=== PATIENT | male | born 1985 | race Caucasian/White ===

== ENCOUNTER 2018-04-18 14:32 | Emergency (ER) | payer OTHER ==
--- NOTE | 2018-04-18 15:03 | ED PDOC ---
HPI: Back Time Seen by Provider: 04/18/18 14:41 Chief Complaint (Nursing): Back Pain Chief Complaint (Provider): Back Pain History Per: Patient History/Exam Limitations: no limitations Onset/Duration Of Symptoms: Days (x1 week) Current Symptoms Are (Timing): Still Present Additional Complaint(s): 32 year old male presents to the ED for evaluation of non-radiating left lower back pain described as pressure for the past week. 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 His last dose of Ibuprofen for pain was reported to be 0700 this morning. Otherwise, denies hx of back problems/ surgeries, fever, chills, urinary symptoms, saddle anesthesia, paresthesia, numbness, weakness, nausea, vomiting, diarrhea, abdominal pain, chest pain, and shortness of breath. PMD: [facility] Past Medical History Reviewed: Historical Data, Nursing Documentation, Vital Signs Vital Signs: Last Vital Signs Temp 98.3 F 04/18/18 14:38 Pulse 83 04/18/18 14:38 Resp 20 04/18/18 14:38 BP 165/87 H 04/18/18 14:38 Pulse Ox 99 04/18/18 14:38 - Medical History PMH: No Chronic Diseases - Surgical History Other surgeries: left knee surgery - Family History Family History: States: Unknown Family Hx - Social History Current smoker - smoking cessation education provided: No Alcohol: None Drugs: Denies - Home Medications Home Medications: Ambulatory Orders Medication Instructions Recorded Cyclobenzaprine [Cyclobenzaprine 10 mg PO Q8 PRN #12 tab 04/18/18 HCl] RX: Cane 1 each MC DAILY #1 each 04/18/18 RX: Ibuprofen [Motrin Tab] 800 mg PO Q8 PRN #21 tab 04/18/18 - Allergies Allergies/Adverse Reactions: Allergies Allergy/AdvReac Type Severity Reaction Status Date / Time No Known Allergies Allergy Verified 04/18/18 14:37 Review of Systems ROS Statement: Except As Marked, All Systems Reviewed And Found Negative Constitutional: Negative for: Fever, Chills Cardiovascular: Negative for: Chest Pain Respiratory: Negative for: Shortness of Breath Gastrointestinal: Negative for: Nausea, Vomiting, Abdominal Pain, Diarrhea Genitourinary Male: Negative for: Dysuria, Frequency Musculoskeletal: Positive for: Back Pain (lower left) Neurological: Negative for: Weakness, Numbness, Other (paresthesias, saddle anesthesia) Physical Exam - Reviewed Nursing Documentation Reviewed: Yes Vital Signs Reviewed: Yes - Physical Exam Comments: GENERAL APPEARANCE: Patient is awake, alert, oriented x 3, in no acute distress. Ambulatory in ED with steady gait. SKIN: Warm, dry; (-) cyanosis. EYES: (-) conjunctival pallor. ENMT: Mucous membranes moist. NECK: Supple, FROM CHEST AND RESPIRATORY: (-) rales, (-) rhonchi, (-) wheezes; breath sounds equal bilaterally. Respirations even and nonlabored. HEART AND CARDIOVASCULAR: (-) irregularity ABDOMEN AND GI: Soft; (-) tenderness (-) guarding (-) distention. BACK: (+) left paralumbar tenderness, (-) spasm, (-) direct bony tenderness, (- ) deformity. EXTREMITIES: (-) deformity. Distal pulses good bilaterally. NEURO AND PSYCH: Mental status as above. Intact sensation bilaterally; normal strength in extension of the knees, plantar and dorsiflexion of the toes. Gait: limping. Speech: clear. No gross sensory deficit. (-) facial asymmery (-) aphasia - ECG O2 Sat by Pulse Oximetry: 99 (RA) Pulse Ox Interpretation: Normal Medical Decision Making Medical Decision Making: Initial Impression: acute back pain, lumbar strain Time: 1455 Initial Plan: --Flexeril 10mg PO (not driving home) --Toradol 60mg IM --Re-evaluation 1600 On re-evaluation, patient reports continued pain. Tramadol 50mg PO ordered. 1700 On re-evaluation, patient reports difficulty ambulating. Patient states pain is radiating down the left leg and his leg feels as if it will buckle out. Case discussed with ED MD Hirsch, who recommends CT without contrast. CT ordered. Patient searched in [employer] and no account found with patient's information. 1826 CT FINDINGS: ALIGNMENT: Bony alignment is anatomic. DISCS/DEGENERATIVE CHANGES: T12/L1: No significant central canal or neural foraminal stenosis. L1/L2: No significant central canal or neural foraminal stenosis. L2/L3: No significant central canal or neural foraminal stenosis. L3/4: No significant central canal or neural foraminal stenosis. L4/5: No significant central canal or neural foraminal stenosis. L5/S1: There is a small central posterior disc herniation with a calcific density encroaching on the anterior aspect of the spinal canal at this level. Neural foramen are patent. BONES: No acute fracture or aggressive appearing osseous lesion. SOFT TISSUES: The soft tissues are unremarkable. MISCELLANEOUS: No abnormal contrast enhancement. IMPRESSION: Small central posterior disc herniation with calcific density at the L5-S1 level. Clinical correlation advised. If warranted correlation with MRI examination of the lumbosacral spine should be considered Repeat BP: 128/74 Results discussed with patient using operations business partner #[phone]. On re-evaluation, patient reports improvement of symptoms. Gait steady in the ED. On exam, patient remains AAOx3, in no acute distress. Vitals stable. Lab /Diagnostic results d/w the patient in great detail. Diagnosis of acute back pain, lumbar disc herniation d/w the patient. Based on history, exam and diagnostic results, plan will be for outpatient follow up. Patient instructed to follow-up with pmd / referral provided / the clinic in 1- 2 days without fail. Advised to take medication as prescribed. Return to the emergency room at any time for any new or worsening symptoms. Patient states he fully agrees with and understands discharge instructions. States that he agrees with the plan and disposition. Verbalized and repeated discharge instructions and plan. I have given the patient opportunity to ask any additional questions. Scribe Attestation: Documented by Danay Kc, acting as a scribe for Susanne Dwyer PA-C. Provider Scribe Attestation: All medical record entries made by the Scribe were at my direction and personally dictated by me. I have reviewed the chart and agree that the record accurately reflects my personal performance of the history, physical exam, medic al decision making, and the department course for this patient. I have also personally directed, reviewed, and agree with the discharge instructions and disposition. Disposition - Clinical Impression Clinical Impression: Acute back pain, Lumbar disc herniation, Radicular pain of lower extremity - Patient ED Disposition Is Patient to be Admitted: No Counseled Patient/Family Regarding: Studies Performed, Diagnosis, Need For Followup, Rx Given - Disposition Referrals: Zain Curtis MD [Medical Doctor] - [facility] [Outside] Disposition: Routine/Home Disposition Time: 19:20 Condition: STABLE Additional Instructions: La atencin mdica de emergencia que recibi hoy se dirigi a quita sntomas agudos. Si le recetaron algn medicamento, llnelo y tmelo segn las indicaciones. Los sntomas pueden tardar varios khan en resolverse. Regrese al Departamento de Emergencias si quita sntomas empeoran, no mejoran o si tiene otros problemas. Comunquese con minor mdico dentro de 2 khan para guzman nueva evaluacin y wilfredo un seguimiento o llame a jero de los mdicos / clnicas a los que alvarez sido referido y que figuran en el formulario de Informacin de visita al paciente que se incluye en minor paquete de demond. Lleve todos los documentos que le entregaron al momento del demond junto con todos los medicamentos que est tomando para minor visita de seguimiento. Nuestro tratamiento no puede reemplazar la atencin mdica continua por parte de un proveedor de atencin primaria (PCP) fuera del departamento de emergencias. Prescriptions: RX: Cane 1 each MC DAILY #1 each Cyclobenzaprine [Cyclobenzaprine HCl] 10 mg PO Q8 PRN #12 tab PRN Reason: Muscle Spasm RX: Ibuprofen [Motrin Tab] 800 mg PO Q8 PRN #21 tab PRN Reason: Pain, Moderate (4-7) Instructions: Low Back Pain in Adults, Herniated Disc, Radiculopathy (DC), Herniated Disc Exercises Forms: [facility] (Bulgarian) Print Language: PAKISTANI - HAFSA Present On Arrival: None
[2018-04-18 19:19] VITALS: BP 128/74; PULSE 68; RESP 18; TEMP 98.2
[2018-04-18 19:20] VITALS: O2SAT 99
--- NOTE | 2018-04-19 10:21 | CT ---
Date of service: 04/18/2018 PROCEDURE: CT Lumbar Spine without contrast HISTORY: lower back pain, difficulty walking COMPARISON: None available. TECHNIQUE: Axial computed tomography images were obtained of the lumbar spine without the use of intravenous contrast. Coronal and sagittal reformatted images were created and reviewed. Radiation dose: Total exam DLP = 1230.0 mGy-cm. This CT exam was performed using one or more of the following dose reduction techniques: Automated exposure control, adjustment of the mA and/or kV according to patient size, and/or use of iterative reconstruction technique. FINDINGS: VERTEBRAE: There is normal alignment of the lumbar vertebral bodies. There is normal lumbar lordosis. There is no acute fracture, spondylolysis or spondylolisthesis. Bone mineralization is normal. DISCS/SPINAL CANAL/NEURAL FORAMINA: Please note evaluation of the discs and spinal canal is limited on noncontrast CT examination. T12-L1: No large disc herniation, neural foraminal narrowing or spinal canal stenosis. L1-2: No large disc herniation, neural foraminal narrowing or spinal canal stenosis. L2-3: No large disc herniation, neural foraminal narrowing or spinal canal stenosis. L3-4: No large disc herniation, neural foraminal narrowing or spinal canal stenosis. L4-5: Diffuse posterior disc bulge indents the ventral thecal sac without central spinal canal stenosis. Mild bilateral facet arthropathy contributes to mild neural foraminal narrowing.. L5-S1: There is calcification in the posterior central disc. Broad-based central disc protrusion without central spinal canal stenosis. Also noted is superimposed left foraminal disc protrusion mild bilateral facet arthropathy contribute to mild left neural foraminal narrowing. PARASPINAL SOFT TISSUES: The paraspinous soft tissues are normal. Imaged portion of the retroperitoneum is within normal limits. OTHER FINDINGS: None. IMPRESSION: No acute fracture, spondylolysis or spondylolisthesis. Mild degenerative disc disease at L4-5 and L5-S1, worse at L5-S1 with a broad-based central and left foraminal disc protrusions without central spinal canal stenosis. Mild bilateral facet arthropathy contribute to mild left neural foraminal narrowing. A preliminary report was provided by [email or web address].
== END 2018-04-18 19:28 | disposition home or self-care (01) ==
LOC: SUPCPDRO 14:32 → H.ER 14:32
DX: M54.9 Dorsalgia, unspecified (principal); M51.27 Other intervertebral disc displacement, lumbosacral region; M54.10 Radiculopathy, site unspecified
CPT/HCPCS: 72131; 96372; 99283; J1885